=== PATIENT | female | born 1970 | race Caucasian/White ===

== ENCOUNTER 2024-06-18 16:34 | Emergency (ER) | payer OTHER, SELFPAY ==
--- NOTE | 2024-06-18 16:39 | ED_ITS ---
HPI - Dental/Oral General Chief complaint: Dental/Oral Stated complaint: abcess tooth/swelling Time Seen by Provider: 06/18/24 16:45 Mode of arrival: ambulatory Limitations: no limitations History of Present Illness HPI Narrative: 54-year-old female presents with concern for left lower dental pain and cheek swelling. Reports she had a cracked tooth that started hurting a few days ago and then it became swollen, tender. She reports she has been using warm compresses. She denies difficulty swallowing, fever. MD Complaint: tooth pain Related Data Home Medications Medication Instructions Recorded Confirmed omeprazole 20 mg capsule,delayed 20 mg PO DAILY 06/18/24 06/18/24 release Allergies Allergy/AdvReac Type Severity Reaction Status Date / Time No Known Allergies Allergy Unverified 06/18/24 16:48 Review of Systems Review of Systems: CONSTITUTIONAL: Denies malaise, chills, sweats, or fever. EYES: Denies visual changes ENT: Denies rhinorrhea, congestion, sinus pain, otalgia or sore throat. Reports left lower dental pain CARDIOVASCULAR: Denies chest pain, palpitations RESPIRATORY: Denies cough or dyspnea. SKIN: Denies rash or itching. MUSCULOSKELETAL: Denies myalgia. NEUROLOGIC: Denies numbness, weakness, or headache. All systems reviewed & are unremarkable except as noted in HPI and below PMFSH Comments At time of signature, agree with nursing past medical, surgical, social and family history. There is no relevant family history pertinent to the presenting complaint Exam Narrative: GENERAL: Well-appearing, well-nourished, and in no acute distress. HEAD: Normocephalic, atraumatic. EYES: PERRLA, sclera clear ENT: Nares clear, turbinates pink, no rhinorrhea or epistaxis. Mucous membranes moist. TM pearly malloy with sharp light reflex bilaterally; no tragal tenderness. Oropharynx without erythema or lesions. Tonsils not enlarged and without exudate. Missing teeth, broken teeth, caries, left jaw redness, swelling, warmth NECK: Supple. No lymphadenopathy. CHEST: No respiratory distress. Speaks in full sentences. HEART: Regular rate and rhythm. SKIN: Warm, dry, no visible rash. NEURO: Alert and oriented x3. PSYCH: Normal mood and affect Course Course Emergency Course: Patient is aware of diagnosis, understands and agrees to treatment plan. Anticipatory guidance given. Patient agrees to follow-up as directed and is aware of reasons to seek care at the emergency department. Portions of this record may have been created with voice recognition software Level of Care: Express Care Visit Vital Signs Vital signs: Reviewed. MDM - Dental/Oral MDM Narrative Medical decision making narrative: I evaluated this in the [facility] care. History is obtained from patient who is an independent historian and physical exam was performed.? Available medical records were reviewed. ? Exam findings and relevant testing show no acute concerns or changes; patient is non-toxic appearing and is in no distress. Patients pain and complaint coupled with physical findings are consistant with dentalgia. There are no focal signs of space occupying lesions that are compromising to the airway; no dysphagia, odynophagia, dysphonia, or dyspnea. No uvular deviation or soft palate edema. Patient is non-toxic appearing. The floor of the mouth is soft with no signs of Manoj's Angina; no induration below mandible, no neck pain. Patient is without trismus or drooling and able to swallow secretions. Patient is felt appropriate for discharge home with dental follow up. ? Differential diagnosis and treatment plan were discussed with the patient. Patient agrees with discussion and after shared medical decision making agrees with plan of care. All questions were answered to the patient's satisfaction. Patient is appropriate for outpatient treatment and follow-up. Differential Diagnosis Differential diagnosis: Likely gingival abscess, dental caries, toothache, dental abscess, fracture of tooth and aphthous ulcer Critical Care Time Critical Care Time Critical Care Time: No Discharge Plan Discharge Clinical Impression: Abscess, dental Patient Disposition: Home, Self-Care Condition: Stable Instructions: Antibiotic Form, Dental Abscess (ED) Additional Instructions: Take antibiotic as directed Avoid temperature extremes May apply heat or ice to the face Gentle brushing and flossing Take 2 extra strength Tylenol, 4 ibuprofen, 80 mg of caffeine at same time. You can do this every 6 hours. Do not do this for more than 2 - 3 days. You can substitute 25 mg Benadryl at nighttime for caffeine to help you sleep. Do this for no more than 3 days. Follow-up with the dentist as soon as possible - see the list provided Prescriptions: New clindamycin HCl 300 mg capsule 300 mg PO Q8H 7 Days Qty: 21 0RF No Action omeprazole 20 mg capsule,delayed release(DR/EC) 20 mg PO DAILY Follow-up/Referrals: Doretha,Silvia Kevin MD [Primary Care Provider] - Time of Disposition: 16:54
[2024-06-18 16:40] VITALS: BP 113/78; PULSE 85; RESP 17; TEMP 37.1; O2SAT 100
[2024-06-18 16:48] VITALS: BP 113/78; PULSE 85; RESP 17; TEMP 37.1; O2SAT 100
== END 2024-06-18 16:55 | disposition home or self-care (01) ==
PROVIDERS: Emergency Provider Nurse Practitioner; PCP Emergency Medicine
DX: K04.7 Periapical abscess without sinus (principal); K21.9 Gastro-esophageal reflux disease without esophagitis
CPT/HCPCS: 99213; G0463